=== PATIENT | female | born 1980 | race Caucasian/White ===

== ENCOUNTER 2019-10-27 09:40 | Outpatient (RCR) | payer OTHER, SELFPAY ==
[2019-10-27] MEDS: RHO(D) IMMUNE GLOBULIN 300 MCG SYRINGE IM (17:33)
== END 2020-01-25 23:59 | disposition home or self-care (01) ==
LOC: ANHLAB 09:40
PROVIDERS: Visit Provider Student in an Organized Health Care Education/Training Program
DX: Z29.13 Encounter for prophylactic Rho(D) immune globulin (principal); O36.0990 Maternal care for other rhesus isoimmunization, unspecified trimester, not applicable or unspecified; Z3A.00 Weeks of gestation of pregnancy not specified
CPT/HCPCS: 36415; 86900; 86901; 90384; 96372; J2790

== ENCOUNTER 2020-01-17 03:17 | Inpatient (IN) | payer OTHER, SELFPAY ==
[2020-01-17] VITALS (44 sets, daily range): BP systolic 83–179; BP diastolic 31–159; PULSE 61–161; RESP 16–18; TEMP 36.8–38.2; O2SAT 97–100; BMI 28.3
--- NOTE | 2020-01-17 03:33 | LDADM ---
This patient, Rocio Gomez, was admitted to Labor/Delivery/Recovery 105 on 01/17/20 at 03:17. Plans for labor, pain management and were discussed with patient. Patient/family oriented to hospital policies and general routines including ID bracelet, bed and alarms, visiting hours, pain management, procedures, bathroom and other care routines, personal items, smoking policy, room service/diet and guest tray routines, security routines, and visiting hours. Patient/Family are encouraged to report perceived risks to care and to ask questions if they do not understand what they are told or what they should do. See OBIX for further documentation.
[2020-01-17] MEDS: LACTATED RINGERS 1,000 ML 125 ML IV CONT (03:42)
[2020-01-17] MEDS: AMPICILLIN 2 GM/NS 100 ML 2 GM/100 ML BAG IVPB (03:42)
[2020-01-17 03:43] LABS: Basophils Absolute Auto 0.1 K/mm3 (0.0-0.1); Basophils Percent Auto 0.5 % (0.2-1.2); Eosinophils Absolute Auto 0.2 K/mm3 (0-0.3); Eosinophils Percent Auto 1.1 % (0-4.4); Hematocrit 39.1 % (37.0-47.0); Hemoglobin 13.4 g/dL (12.0-15.0); Immature Granulocyte Percent A 0.6 % (0-0.5); Lymphocytes Absolute Auto 2.87 K/mm3 (0.9-3.2); Lymphocytes Percent Auto 17.7 % (18.3-44.2); Mean Corpuscular HGB Conc 34.3 g/dl (32-36); Mean Corpuscular Hemoglobin 30.9 pg (26-34); Mean Corpuscular Volume 90.3 fl (80-100); Mean Platelet Volume 11.9 fl (7.4-10.4); Monocytes Absolute Auto 1.1 K/mm3 (0.1-0.6); Monocytes Percent Auto 6.5 % (2.6-8.5); Neutrophils Absolute Auto 11.9 K/mm3 (1.3-6.7); Neutrophils Percent Auto 73.6 % (45.5-73.1); Platelet Count Result 132 k/mm3 (150-375); Red Blood Count 4.33 M/mm3 (4.2-5.4); Red Cell Distribution Width 12.6 % (11.5-14.5); White Blood Count 16.2 K/mm3 (4.5-10.0)
--- NOTE | 2020-01-17 03:55 | WPDHPUPDATE1 ---
History and Physical Update Update Date/Time: 01/17/20 03:55 40 yo at 40w1d who presents in labor. She reports regular ctx. She denies vaginal bleeding or LOF. Her has been uncomplicated. History and Physical has been reviewed, including an updated exam of the patient. There are NO changes in the patient's condition. Risks, benefits, and alternatives have been discussed and questions answered. Patient agrees to proceed with procedure. A/P: 40 yo at 40w1d who presents in labor admit to L&D routine admission orders regular ctx FHT cat 1 GBS +, will start PCN Rh-, will get rhogam PP expecant management
--- NOTE | 2020-01-17 04:11 | WPDANESEPPF ---
Anes - Initial Pre Proc Eval Procedure: labor epidural Date/Time: 01/17/20 04:11 Surgeon: Rashad Galaviz MD Pre Op Diagnosis: labor Patient Data Age: 40 Gender: F Height: 1.7 m Weight: 82 kg Last Vital Signs Temp 36.8 C 01/17/20 03:22 Pulse 123 H 01/17/20 04:11 BP 177/159 H 01/17/20 04:11 Pulse Ox 100 01/17/20 04:10 Allergies Allergy/AdvReac Type Severity Reaction Status Date / Time No Known Allergies Allergy Verified 12/16/19 13:43 Home Medications Medication Instructions Recorded Confirmed Type PNV cmb#95-ferrous fumarate-FA 1 tablet PO DAILY 12/16/19 12/16/19 History [] Laboratory Tests 01/17/20 01/17/20 03:35 03:35 WBC 16.2 K/mm3 H K/mm3 (4.5-10.0) RBC 4.33 M/mm3 M/mm3 (4.2-5.4) Hgb 13.4 g/dL g/dL (12.0-15.0) Hct 39.1 % % (37.0-47.0) MCV 90.3 fl fl (80-100) MCH 30.9 pg pg (26-34) MCHC 34.3 g/dl g/dl (32-36) RDW 12.6 % % (11.5-14.5) Plt Count 132 k/mm3 L k/mm3 (150-375) MPV 11.9 fl H fl (7.4-10.4) Immature Gran % (Auto) 0.6 % H % (0-0.5) Neut % (Auto) 73.6 % H % (45.5-73.1) Lymph % (Auto) 17.7 % L % (18.3-44.2) Gem % (Auto) 6.5 % % (2.6-8.5) Eos % (Auto) 1.1 % % (0-4.4) Baso % (Auto) 0.5 % % (0.2-1.2) Lymph # (Auto) 2.87 K/mm3 K/mm3 (0.9-3.2) Gem # (Auto) 1.1 K/mm3 H K/mm3 (0.1-0.6) Eos # (Auto) 0.2 K/mm3 K/mm3 (0-0.3) Baso # (Auto) 0.1 K/mm3 K/mm3 (0.0-0.1) Abs Immat Gran (auto) 0.10 K/mm3 H K/mm3 (0.00-0.031) Absolute Neuts (auto) 11.9 K/mm3 H K/mm3 (1.3-6.7) Absolute Nucleated RBC 0.0 K/mm3 K/mm3 (0.0-0.012) Nucleated RBC % 0.0 % % (0.0-0.2) % Immature Plt Fraction 9.0 % % (0.9-11.2) RPR Pending Patient hx anesthesia problems: none Family hx anesthesia problems: none [facility] Family History Family History Grandparent Diabetes mellitus Cerebrovascular accident Father Diabetes mellitus Sibling Diabetes mellitus Mother Cerebrovascular accident Social History Social History Smoking status: Never smoker Substance use: never Spiritual care concerns: No Anes - Eval Final PreProcedure Day of Procedure 01/17/20 04:11 Patient weight: normal Heart: regular rate and rhythm Lungs: clear to auscultation and normal air movement Airway: Mallampati scale class II Neurological: alert and oriented ASA classification: II Anesthetic plan: proceed Anesthesia type and monitoring: regional epidural and standard monitoring Informed Consent: The patient's anesthetic plan and its attendant risks and benefits were discussed with the patient/family/POA. Questions were solicited and answers provided to the satisfaction of the patient/family/POA.
--- NOTE | 2020-01-17 04:59 | PM.OBPRVD ---
OB - Delivery Note Procedure Procedure: Patient pushed for a spontaneous vaginal delivery. The fetus was delivered atraumatically and placed on the maternal abdomen. The cord was clamped and cut after 1 minute of life. The cord was double clamped and cut and a segment of cord was collected for cord gases. Cord blood was collected for blood type and Coomb's testing. The placenta delivered spontaneously and was noted to be intact. The perineum was inspected and there was a 1st degree perineal laceration. The laceration was repaired with 3-0 vicryl in the usual fashion. The uterus was firm and good hemostasis was noted. The patient and fetus were stable in the delivery room. Intrapartal events: None Induction method: none Delivery augmentation: rupture of membranes Delivery monitor: external FHT Route of delivery: Episiotomy description: None Laceration description: Perineal - 1st Degree Delivery repair: vicryl Specimen: No Estimated blood loss (mL): 250 Anesthesia type: Epidural Disposition: floor () Complications: No immediate complications Baby Date of : 01/17/20 Time of : 04:45 Weeks of gestation at delivery: 40 gender: Male Weight (pounds): 9 Weight (ounces): 1 presentation: vertex position: Right Occiput Anterior Placenta delivery description: Spontaneous cord vessel description: 3 Vessels score one minute: 8 score five minutes: 9
[2020-01-17] MEDS: OXYTOCIN 30 UNITS/NS 500 ML 30 UNITS/500 ML BAG 125 UNITS IV CONT (06:30)
[2020-01-17] MEDS: IBUPROFEN 600 MG TABLET PO ×2 (06:38→20:08)
--- NOTE | 2020-01-17 07:39 | OBPPTRN ---
Patient transferred to post room #276 via W/C @ 0737. Support person present. Oriented to unit, room, information board, rooming in, admission packet and security measures. Patient verbalizes understanding.
--- NOTE | 2020-01-17 08:00 | PC.NURSE ---
Called Dr. Galaviz with pt status. Temp 100.7. Call if no improvement from meds, or temp increased again.
[2020-01-17 09:47] LABS: Rapid Plasma Reagin Non-Reactive (NonReactive)
[2020-01-18 05:20] LABS: Hematocrit 33.3 % (37.0-47.0); Hemoglobin 10.9 g/dL (12.0-15.0)
--- NOTE | 2020-01-18 07:13 | PM.OBDSVD ---
OB - DS: Summary OB Procedures : None OB Procedures Intrapartum: Spontaneous Vag Delivery OB Procedures: : None Status at Discharge Functional status at discharge: independent ambulation Overall status at discharge: patient is back to baseline Time Spent with Patient Time attestation: Total time spent providing and/or coordinating discharge services: Time spent: Less than 30 minutes Exam Const: General: comfortable and no acute distress Resp: Effort & Inspection: normal respiratory effort Auscultation: clear to auscultation bilaterally Cardio: Rate: regular rate GI: GI Palp: Yes Soft to palpation Auscultation: normal bowel sounds Other: Fundus firm below umbilicus Psych: Appearance: grossly normal Mental Status: mental status grossly normal Affect: normal affect DS: Data Data Completed and Pending Pending studies at discharge: Pending at discharge 01/17/20 04:55 Surgical [PTH] Routine Labs on day of discharge: Labs from last 24 hours 01/18/20 01/18/20 01/17/20 05:09 05:09 03:35 Hgb 10.9 L Hct 33.3 L RPR Non-reactive Blood Type A Negative Antibody Screen Negative Screen Pending Baby's Blood Type Pending Baby's BRET Pending Doses of RhIg Required Pending Discharge Plan Discharge Consulting providers: Nettie Gómez Discharging Clinician: Rashad Galaviz Patient Disposition: Home, Self-Care Activity: as tolerated and pelvic rest Diet: regular Discharge Instructions: call or return for temperature >100.4, bleeding >2 pads/hr for 2 hrs, pain not controlled with medications, signs/symptoms of mastitis Patient Instructions: Antibiotic Form Stand Alone Forms: General Discharge Information Follow-up/Referrals: Rashad Galaviz MD [Physician] - Discharge Medications: New Dermoplast (with menthol) 20-0.5 % Aerosol 1 spray topical PRN PRN (Reason: Perineal Discomfort) Qty: 1 RF: 0 acetaminophen [Mapap (acetaminophen)] 325 mg Tablet 650 mg PO Q6H PRN (Reason: Mild Pain (1-3) Or Headache) Qty: 30 RF: 0 ibuprofen 600 mg Tablet 600 mg PO Q6H PRN (Reason: Cramping) Qty: 30 RF: 0 [id number]-C-[id number] Cream 1 applic topical PRN PRN (Reason: Sore Nipples) Qty: 1 RF: 0 Continued PNV cmb#95-ferrous fumarate-FA [] 28 mg iron- 800 mcg Tablet 1 tablet PO DAILY RF: 0 Date of admission: 01/17/20 03:17 Primary Care Provider: PHYSICIAN,[employer]ICATOR Admitting Provider: Rashad Galaviz Attending physician on admission: Rashad Galaviz
[2020-01-18 07:30] VITALS: BP 117/75; PULSE 63; RESP 16; TEMP 37.2; O2SAT 100
--- NOTE | 2020-01-18 08:18 | WPDANLDPN2 ---
Anes-Prog Note L&D Date/Time: 01/18/20 08:18 Comfortable throughout: labor and delivery Neuraxial method: epidural Epidural/Spinal procedure site: clean & non-tender Neuro status: Neuro function grossly intact. Cardiovascular status: normal Respiratory status: normal Airway patency: baseline Mental status: baseline Post-Op hydration status: normal Vital Signs: Last Vital Signs Temp 37.3 C 01/17/20 20:00 Pulse 64 01/17/20 20:00 Resp 18 01/17/20 20:00 BP 127/71 01/17/20 20:00 Pulse Ox 99 01/17/20 20:00 Post-procedural complaints: none Patient feedback: Patient satisfied with anesthetic care.
--- NOTE | 2020-01-18 10:00 | PC.NURSE ---
Pt introductions made and plan of care discussed per post , pain management, breast feeding, daily care activities. PT verbalized understanding of such care.
[2020-01-18 10:33] VITALS: PULSE 63; RESP 16; O2SAT 100
[2020-01-18] MEDS: MULTIVIT/MIN/PREN/FOL AC/IRON TABLET 1 TAB PO (10:33)
[2020-01-18] MEDS: DOCUSATE SODIUM 100 MG CAPSULE PO ×2 (10:33→17:28)
[2020-01-18] MEDS: IBUPROFEN 600 MG TABLET PO ×2 (10:34→17:27)
[2020-01-18] MEDS: TETANUS,DIPHTHERIA,AC PERTUSSIS ADULT (0.5 ML) BOOSTRIX IM (10:34)
[2020-01-18] MEDS: RHO(D) IMMUNE GLOBULIN 300 MCG SYRINGE IM (15:15)
[2020-01-18] MEDS: LANOLIN (LANSINOH) 7.5 GM CREAM 1 APPLIC TOPICAL (15:17)
[2020-01-18 20:30] VITALS: BP 125/82; PULSE 63; RESP 18; TEMP 36.3; O2SAT 99
--- NOTE | 2020-01-19 07:00 | PC.NURSE ---
PT introductions made and plan of care discussed per post , pain management, breast feeding, daily care activities and pending discharge to home. PT verbalized understanding of such care.
[2020-01-19 07:40] VITALS: BP 124/74; PULSE 62; RESP 16; TEMP 37.3; O2SAT 97
[2020-01-19 10:00] VITALS: PULSE 62; RESP 16; O2SAT 97
[2020-01-19] MEDS: MULTIVIT/MIN/PREN/FOL AC/IRON TABLET 1 TAB PO (10:58)
[2020-01-19] MEDS: DOCUSATE SODIUM 100 MG CAPSULE PO (10:58)
--- NOTE | 2020-01-19 12:00 | PC.NURSE ---
Patient viewed the discharge video Mother & Baby Care, The First Two Weeks . Patient was given the opportunity and encouraged to ask questions. Patient verbalized understanding of information shared and has been given the mother/baby guide for home reference.
--- NOTE | 2020-01-19 13:45 | PC.NURSE ---
pt received discharge instructions per protocol and verbalized understanding of such care
--- NOTE | 2020-01-19 13:55 | PC.NURSE ---
Mother is able to independently latch with appropriate positioning/alignment. She denies any nipple discomfort, is feeding as required and waking infant to feed if needed. Infant has had at least 8 effective feedings in the past 24 hours, and is currently meeting outcomes for weight, output, jaundice and feeding frequencies. Mother is concerned infant is cluster feeding and he is not getting enough. Assured mother infant is WNL on all signs of adequate intake. Mother states she may supplement after breastfeedings to allow to sleepy longer between feedings. Reviewed milk should transition in within a few days and should be more satisfied between feedings. Mother states she feels confident to continue effective at home. Reviewed transition to breast milk, signs of adequate intake, and engorgement/relief. Instructed to call ICP if intake/output less than required. Reviewed regular medications mother is taking. Information provided per Noelle. Reviewed community resources on the [facility] website and in the Mom/Baby guide. Information on outpatient services provided. Mother has no further questions at this time.
--- NOTE | 2020-01-19 14:30 | PC.NURSE ---
PT discharged to home ambulatory accompanied by spouse and to waiting car. Follow up appts confirmed
[2020-01-20 07:49] VITALS: BP 131/87; PULSE 71; RESP 16; TEMP 37.1; O2SAT 98
== END 2020-01-19 14:30 | disposition home or self-care (01) | DRG 806 ==
LOC: ANHLDR 03:21 → ANHOB2 07:53
PROVIDERS: Admitting Provider Student in an Organized Health Care Education/Training Program; Visit Provider Student in an Organized Health Care Education/Training Program
DX: O99.824 Streptococcus B carrier state complicating childbirth (principal); O36.0930 Maternal care for other rhesus isoimmunization, third trimester, not applicable or unspecified; Z37.0 Single live birth; Z3A.40 40 weeks gestation of pregnancy; O70.0 First degree perineal laceration during delivery; O99.62 Diseases of the digestive system complicating childbirth; K21.9 Gastro-esophageal reflux disease without esophagitis
CPT/HCPCS: 36415; 85014; 85018; 85025; 85055; 85461; 86592; 86850; 86900; 86901; 88307; 90384; 90715; A9270; J0290; J2590; J2790; J2795; J7120

== ENCOUNTER → 2023-03-06 13:57 | Outpatient (CLI) | payer OTHER, SELFPAY ==
--- NOTE | ~2023-03-06 | MM_ITS ---
EXAMINATION: MM screening yaya BI w robb HISTORY: Baseline screening mammogram TECHNIQUE: Craniocaudal and mediolateral oblique 3-D tomosynthesis images were obtained and synthetic 2-D images were generated. CAD analysis was submitted and interpreted. COMPARISON: None, baseline BREAST PARENCHYMAL COMPOSITION: The breasts are heterogeneously dense, which may obscure small masses . FINDINGS: No suspicious mass, calcification, or architectural distortion are identified in either blayne ast to suggest malignancy. IMPRESSION: 1. No mammographic evidence of malignancy. 2. Recommend routine screening mammography in one year. BI-RADS Category 1: Negative Reviewed, dictated and finalized at location A.
== END ==
PROVIDERS: PCP Student in an Organized Health Care Education/Training Program; Visit Provider Student in an Organized Health Care Education/Training Program
DX: Z12.31 Encounter for screening mammogram for malignant neoplasm of breast (principal)
CPT/HCPCS: 77063; 77067

== ENCOUNTER 2024-06-10 11:37 | Outpatient (CLI) | payer OTHER, SELFPAY ==
--- NOTE | ~2024-06-10 | MM_ITS ---
EXAMINATION: MM screening yaya BI w robb HISTORY: Screening mammogram TECHNIQUE: Craniocaudal and mediolateral oblique 3-D tomosynthesis images were obtained and synthetic 2-D images were generated. CAD analysis was submitted and interpreted. COMPARISON: 03/06/2023 BREAST PARENCHYMAL COMPOSITION:Dense: The breasts are heterogeneously dense, which may obscure small masses. FINDINGS: No suspicious mass, calcification, or architectural distortion are identified in either blayne ast to suggest malignancy. There has been no suspicious interval change. IMPRESSION: No mammographic evidence of malignancy. Recommend routine screening mammography in one year. BI-RADS Category 1: Negative Reviewed, dictated and finalized at location . [employer] DIRECTOR OF PHARMACY
== END 2024-06-10 11:38 | disposition home or self-care (01) ==
LOC: MICIMG 11:37
PROVIDERS: PCP Student in an Organized Health Care Education/Training Program; Visit Provider Student in an Organized Health Care Education/Training Program
DX: Z12.31 Encounter for screening mammogram for malignant neoplasm of breast (principal)
CPT/HCPCS: 77063; 77067

== ENCOUNTER 2025-02-18 19:12 | Emergency (ER) | payer OTHER, SELFPAY ==
--- NOTE | 2025-02-18 19:13 | ED.URI ---
HPI - URI/Sore Throat General Chief Complaint: Upper Respiratory Infection Stated Complaint: strep symptoms Time Seen by Provider: 02/18/25 19:13 Source: patient Mode of arrival: ambulatory Limitations: no limitations History of Present Illness HPI Narrative: Patient is a 45-year-old female who presents with sore throat for 2 days with low-grade fever, body aches and chills. Has been taking Tylenol and ibuprofen. Denies any other sick contacts. Has not had any nausea, vomiting or diarrhea. Related Data Allergies Allergy/AdvReac Type Severity Reaction Status Date / Time No Known Allergies Allergy Verified 02/18/25 19:14 Review of Systems Review of Systems: All systems reviewed & are unremarkable except as noted in HPI and below Constitutional: Constitutional: Reports body ache(s), Reports fever(s), Denies headache(s), Denies malaise and Denies weakness Eyes: Eyes: Denies loss of vision ENT: Denies otalgia, Denies headache(s), Denies nasal congestion, Denies sinus pain and Reports sore throat Cardiovascular: Cardiovascular: Denies chest pain, Denies irregular heart rhythm and Denies dyspnea Respiratory: Respiratory: Denies cough and Denies dyspnea Gastrointestinal: Gastrointestinal: Denies abdominal pain, Denies melena, Denies hematochezia, Denies diarrhea, Denies nausea and Denies vomiting Musculoskeletal: Musculoskeletal: Denies back pain, Reports myalgias and Denies arthralgias Integumentary/Breasts: Skin/Breast: Denies pruritus and Denies rash Neurologic: Denies headache(s), Denies loss of vision and Denies weakness Psychiatric: Psychiatric: Reports no additional psychiatric complaints [facility] Surgical History Surgical History History of ankle surgery Family History Family History Grandparent Diabetes mellitus Cerebrovascular accident Father Diabetes mellitus Sibling Diabetes mellitus Mother Cerebrovascular accident Social History Social History Smoking status: Never smoker Alcohol intake: current Alcohol use details: social Substance use: never Do You Feel Safe in your Home?: Yes Lack of Transportation: No Lack of Food: Never True Current Housing: I Have Housing Concerned About Future Housing: No Difficulty Paying Gas/Electric Bills: No Difficulty Paying for Meds: No Currently Unemployed: No Education: Bachelor's Degree Difficulty w/ Childcare or Family Care: No Living arrangements: with family Occupation/Education: occupation Gender identity (if verbalized by the patient): Female Sexual Orientation (if Verbalized by the Patient): Straight or Heterosexual Spiritual care concerns: No Comments At time of signature, agree with nursing past medical, surgical, social and family history. There is no relevant family history pertinent to the presenting complaint. Exam Const: General: cooperative, healthy appearing, comfortable, no acute distress and well nourished Nutritional Appearance: well nourished Orientation/consciousness: patient oriented x3 Limitations: no limitations HENMT: Head: normal to inspection, normocephalic and atraumatic Ears: hearing grossly normal bilaterally, external ears normal, TM's normal bilaterally and EAC's normal Face/Nose/Sinus: Normal external nose present, Normal nares present, Normal nasal mucous membranes and turbinates present, Normal septum present, normal facial exam, sinuses nontender and face symmetric Face and sinus: normal facial exam, sinuses nontender and face symmetric Mouth: Yes Normal oral and palatal mucosa present, Yes lip normal and Yes moist mucous membranes Teeth and gingiva: dentition normal Throat: uvula midline, abnormal tonsil bilateral erythema, exudates and hypertrophy 2+ and posterior oropharynx abnormal erythema Eyes: General: appearance normal, both eyes and all related structures Alignment and Position: alignment normal and position normal Periorbital: periorbital findings normal Eyelids: eyelids normal Pupils: Equal, round and reactive pupils present Neck: Neck: normal visual inspection, full ROM, no lymphadenopathy and supple Chest: Chest palpation & inspection: normal inspection of the chest and normal palpation of entire chest wall Resp: Effort & Inspection: normal respiratory effort and able to speak in complete sentences Auscultation: clear to auscultation bilaterally, no crackles, no rales, no rhonchi and no wheezes Cardio: Rate: regular rate Rhythm: regular rhythm Heart sounds: S1 normal heart sound present and S2 normal heart sound present GI: Inspection: normal to inspection Skin: General skin exam: normal color and no rashes or lesions noted Neuro: General: patient oriented x3 and moves all extremities Cranial nerves: Yes Equal, round and reactive pupils present Speech: normal speech Gait exam (Neuro): Normal gait present Extrem: General: normal to inspection, full ROM and no edema Psych: Appearance: grossly normal and well kempt Mental Status: mental status grossly normal Speech and movement: Normal speech and movement present Affect: normal affect Attitude: cooperative Thought process: Normal thought process present Course Course Emergency Course: Patient is aware of diagnosis, understands and agrees to treatment plan. Anticipatory guidance given. Patient agrees to follow-up as directed and is aware of reasons to seek care at the emergency department. Portions of this record may have been created with voice recognition software Level of Care: Express Care Visit Vital Signs Vital signs: Vital Signs Temperature 37.4 C 02/18/25 19:23 Pulse Rate 68 02/18/25 19:23 Respiratory Rate 18 02/18/25 19:23 Blood Pressure 117/77 02/18/25 19:23 Pulse Oximetry 100 02/18/25 19:23 Oxygen Delivery Room Air 02/18/25 19:23 Temperature 37.4 C 02/18/25 19:23 Pulse Rate 68 02/18/25 19:23 Respiratory Rate 18 02/18/25 19:23 Blood Pressure 117/77 02/18/25 19:23 Pulse Oximetry 100 02/18/25 19:23 Oxygen Delivery Room Air 02/18/25 19:23 Reviewed MDM - URI/Sore Throat MDM Narrative Medical decision making narrative: Patient positive for strep, will treat with antibiotics. Pt well hydrated appearing, in no respiratory distress, hemodynamically stable. Recommend supportive care. The patient is stable at time of discharge the clinical impression was discussed and the patient was given the opportunity to ask questions, which were addressed as completely as possible given the information available at present. Anticipatory guidance and return to care precautions were discussed and the importance of primary care follow-up was stressed and encouraged. The patient voiced understanding of the plan, indications to return, and the need for follow-up. Patient is appropriate for outpatient treatment and follow-up. Differential diagnosis considered: Lan virus, strep pharyngitis, allergic rhinitis, upper respiratory tract infection, sinusitis, rhinosinusitis, nasopharyngitis. viral pharyngitis, otitis media, otitis externa, otitis effusion, foreign body, cerumen impaction, viral syndrome, and influenza.? Medical Records Attestation: I reviewed the patient's medical records. Lab Data Attestation: I reviewed the patient's lab results. Labs: Lab Results 02/18/25 Range/Units 19:25 POC Grp A Strep Screen Positive (Negative) Discharge Plan Discharge Clinical Impression: Strep throat Patient Disposition: Home Condition: Stable Instructions: Strep Throat (ED) Additional Instructions: Your rapid strep swab was positive today at [facility]. After 24 hours on antibiotics throw tooth brush away and start using a new one. Wash your sheets and cup/water bottle that is used daily. Do not share drinks. Take Motrin alternating with Tylenol for pain and fever alternating every 3 hours. 8 AM: Tylenol 11 AM: Ibuprofen 2 PM: Tylenol 5 PM: Ibuprofen 8 PM: Tylenol 11 PM: Ibuprofen 2 AM: Tylenol 5 AM: Ibuprofen Increase fluids, avoid caffeine. Other symptomatic treatments include: -Antihistamine medication such as Benadryl at night and Zyrtec/Claritin/My during the day can help improve symptoms. -Use Flonase twice a day for 5 days then daily to help reduce the inflammation and dry up your sinuses. -You can also use Sudafed or Mucinex. Be sure to drink plenty of water with these medications at least 8 ounces with every dose and it is important to drink 8 to 10 glasses of water per day. Water is a natural decongestant -Eat and drink things that are easy to swallow, like tea or soup, or popsicles. -Oral rinses such as: Salt water gargles and/or may use topical anesthetic (eg. Chloraseptic spray) or lozenges to relieve dryness or throat pain). -Frequent hand washing or hand experimental worker is one of the best ways to prevent spread of infection. -Using a vaporizer or humidifier at night will also help thin secretions and help with coughing up phlegm. -Follow up with primary care provider in 3-5 days if condition is not improving - For new or worsening symptoms go directly to the nearest ER Patient Language: Korean Prescriptions: New amoxicillin 500 mg capsule 500 mg PO BID 10 Days Qty: 20 0RF Follow-up/Referrals: Nate,ALVIN Curtis [Primary Care Provider] - 3 Days Time of Disposition: 19:27
--- OUTSIDE RECORDS SUMMARY | 2025-02-18 19:14 | XMS_ITS | Clinical Summary ---
Author Organization [facility] Address [facility] [place] [address] Care Team Providers Care Office Rep Name Role Phone Samina Sullivan NP Primary Care Provider [phone] Allergies Active Allergy Reactions Criticality Noted Date Comments Amoxicillin Rash Low 06/16/2022 As a baby Medications XIIDRA 5 % ophthalmic solution Place 1 drop into both eyes 2 (two) times daily. 3 Active multi vitamin/minerals (THERA-M ENHANCED) tablet Take 1 tablet by mouth daily. Active albuterol sulfate HFA 108 (90 Base) MCG/ACT inhalerIndication s:Exercise induced bronchospasm (HHS/HCC) Inhale 2 puffs into the lungs every 4 (four) hours as needed for Wheezing or Shortness of breath. 18 g 3 4 Active Active Problems No known active problems Resolved Problems Problem Noted Date Diagnosed Date Resolved Date No known health problems 08/25/202212/2022 Upper respiratory tract infe ction, unspecified type 06/16/2022 08/25/2022 Acute cough 06/16/2022 08/25/2022 Immunizations Immunization Administration Dates Next Due Tdap (Generic) 01/18/2020 Family History Medical History Relation Comments Diabetes Brother Diabetes Father Relation Status Comments Brother Father Social History Tobacco Use Types Packs/Day Years Used Date Smoking Tobacco: Former Cigarettes Passive Smoke Exposure: Past Smokeless Tobacco: Never Tobacco Cessation:Counseling Given: Not Answered Comments:na Alcohol Use Standard Drinks/Week Comments Yes 0 (1 standard drink = 0.6 oz pur e alcohol) socially PHQ-2 Answer Date Recorded PHQ-2 Score - If the patient scores above 3, please move on to questions 3-9 0 06/16/2022 Comments No Sex and Gender Information Value Date Recorded Sex Assigned at Female 12/09/2022 8:03 AM CDT Legal Sex Female 9:06 AM GENERAL PARTNER Gender Identity Female 12/09/2022 8:03 AM CDT Sexual Orientation Straight 12/09/2022 8: 03 AM CDT Last Filed Vital Signs Vital Sign Reading Time Taken Comments Blood Pressure 110/70 09/23/2023 12:50 PM GENERAL PARTNER Pulse 62 09/23/2023 12:50 PM GENERAL PARTNER Temperature 37.1 C (98.7 F) 09/23/2023 12:50 PM GENERAL PARTNER Respiratory Rate 14 09/23/2023 12:50 PM GENERAL PARTNER Oxygen Saturation 100% 09/23/2023 12:50 PM GENERAL PARTNER Inhaled Oxygen Concentration - - Weight 64.9 kg (143 lb) 09/23/2023 12:50 PM GENERAL PARTNER Height 171.5 cm (5' 7.5) 09/23/2023 12:50 PM CS T Body Mass Index 22.07 09/23/2023 12:50 PM GENERAL PARTNER Plan of Treatment Health Maintenance Due Date Last Done Comments Cervical Cancer Screening Pa p Smear (Age 30 to 64) Every 3 Years 1982 Hepatitis B Vaccines (1 of 3 - 19+ 3-dose series) 2001 HPV Vaccines (1 - 3-dose SCD M series) 2009 COVID-19 Vaccine (2023-2 5 season) 2024 07/10/2021, 10/29/2020, 10/08/2020 PHQ-2 (Physician Venetie) 07/27/2024 Annual Physical 09/23/2024 09/23/2023, 08/25/2022 Mammogram Screening 03/06/2025 03/06/2023 Cervical Cancer Screening Pa p with HPV Testing (Age 30 to 64) Every 5 Years 07/03/2027 07/03/2022 Cervical Cancer Screening wi th HPV 07/03/2027 DTaP, Tdap and Td Vaccines ( 2 - Td or Tdap) 01/17/2030 01/18/2020 Hepatitis C Completed 09/02/2022 Meningococcal B Vaccine Aged Out No l onger eligible based on patient's age to complete this topic Meningococcal Vaccine Aged Out No cheyenne vinayak eligible based on patient's age to complete this topic Pneumococcal Vaccine: Pediatrics (0 to 5 Years) and At-Risk Patients (6 to 49 Years) Aged Out No longer eligible b ased on patient's age to complete this topic RSV Immunizations Under 20 Months Aged Out No longer eligible b ased on patient's age to complete this topic Procedures Procedure Name Priority Date/Time Associated Diagnosis Comments MAMMOGRAM GENERIC (SCAN ORDER) 03/06/2023 HEPATITIS C ANTIBODY W/RFX TO HCV RNA Routine 09/02/2022 11:38 AM GENERAL PARTNER Need for hepatitis C screening test OUTSIDE CYTOPATH CERV/VAG INTERPRET (PAP) 07/03/2022 from Last 3 Months or Most Recently Relevant to Health Maintenance Results * MAMMOGRAM GENERIC (03/06/2023) Anatomical Region Laterality Modality Other 03/06/2023 [facility] Scanned SCANNING Final Resu lt * HEPATITIS C ANTIBODY W/RFX TO HCV RNA ([facility] ONLY) (09/02/2022 11:38 AM GENERAL PARTNER) HEPATITIS C AB NON-REACT HILARY NON-REACT HILARY [facility] SIGNAL TO CUTOFF 0.04 <1.00 [facility] Comment: HCV antibody was non-reactive. There is no laboratory evidence of HCV infection. In most cases, no further action is required. However, if recent HCV exposure is suspected, a test for HCV RNA (test code 94146) is suggested. For additional information please refer to http://education.[employer]/faq/MHZ32g6 (This link is being provided for informational/ educational purposes only.) 09/02/2022 11:3 8 AM GENERAL PARTNER 09/02/2022 11:39 AM GENERAL PARTNER Narrative [facility] - SHERYL ORDERS - 09/03/2022 2:39 AM GENERAL PARTNER FASTING:NO FASTING: NO Resulting Agency Comment Performing Organization Information: Site ID: [place] Name: [facility] Address: [address] [id number] Director: Dimitri Mendoza MD us Samina Sullivan NP LABORATORY Final Res ult [facility] - [facility] [address] [id number], [place] * PAP SMEAR WITH HPV (07/03/2022) 07/03/2022 [facility] Scanned SCANNING Final Resu lt from Last 3 Months or Most Recently Relevant to Health Maintenance Insurance eleni [facility] Care Teams Office Rep Relationship Specialty Start Date End Date Samina Sullivan NP [address] [place] [address] PCP - General NURSE PRACTITIONER 06/16/22
--- OUTSIDE RECORDS SUMMARY | 2025-02-18 19:14 | XMS_ITS | Clinical Summary ---
Author Organization [facility] Address [facility] [place] [address] Care Team Providers Care Foundry Helper Name Role Phone Pcp, [facility] Primary Care Provider Unavailable Source Comments [facility],non-owned Affiliates and Associated Physician Practices is amultiple site organization consisting of ambulatory clinics and hospital sitesin [place], [place], [place] and [place]. This disclosure is being madepursuant to the Care Everywhere program and may not contain all information available regarding this patient. Last updated 18.[facility] Allergies Active Allergy Reactions Criticality Noted Date Comments Penicillins Urticaria Medium 10/07/2011 Medications * Be aware that medications may not be up to date on this document. Alwaysverify current medications with the patient. norgestim-eth estrad triphasic ([id number] N) tablet Take 1 Tab by mouth 10/07/2016 Active Active Problems Problem Noted Date Diagnosed Date PUD (peptic ulcer disease) 12/05/2016 Immunizations Immunization Administration Dates Next Due TDAP (7yrs+) 12/10/2011 Family History Medical History Relation Name Comments Diabetes - Type 2 Father Relation Name Status Comments Father Alive Mother Alive Social History Tobacco Use Types Packs/Day Years Used Date Smoking Tobacco: Never Smokeless Tobacco: Never Comments No Sex and Gender Information Value Date Recorded Sex Assigned at Not on file Legal Sex 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 [employer] Gender Identity Not on file Sexual Orientation Not on file Last Filed Vital Signs Vital Sign Reading Time Taken Comments Blood Pressure 110/72 12/07/2017 3:33 PM CDT Pulse 74 12/07/2017 3:33 PM CDT Temperature 36.7 C (98 F) 12/07/2017 3:33 PM CDT Respiratory Rate - - Oxygen Saturation 98% 12/07/2017 3:33 PM CDT Inhaled Oxygen Concentration - - Weight 65.1 kg (143 lb 9.6 oz) 12/07/2017 3:33 P M CDT Height 170.2 cm (5' 7) 12/07/2017 3:33 PM CDT Body Mass Index 22.49 12/07/2017 3:33 PM CDT Plan of Treatment Health Maintenance Due Date Last Done Comments LIPID TESTING 1982 MAMMOGRAM 1982 HIV SCREENING 1997 HEPATITIS C SCREENING 01/04/2000 HEPATITIS B VACCINE (1 of 3 - 19+ 3-dose series) 2001 HPV VACCINE (1 - 3-dose SCDM series) 2009 PAP SMEAR 10/07/2019 10/06/2016 (Previously completed) DTAP/TDAP/TD VACCINES (2 - T d or Tdap) 12/09/2021 12/10/2011 COVID-19 VACCINE ( - 2023-2 5 season) 2024 DEPRESSION SCREENING 07/27/2024 INFLUENZA VACCINE (#1) 2025 ZOSTER VACCINE (1 of 2) 01/09/2032 HIB VACCINE Aged Out No longer eligi ble based on patient's age to complete this topic MENINGOCOCCAL (Group B) VACCINE SHARED DECISION-MAKING Aged Out No longer eligible based on patient's age to complete this topic MENINGOCOCCAL GROUPS A/C/Y/W VACCINE Aged Out No longer eligible b ased on patient's age to complete this topic PNEUMOCOCCAL VACCINE Aged Out No long er eligible based on patient's age to complete this topic Insurance [employer] Care Teams Foundry Helper Relationship Specialty Start Date End Date Pcp, [facility] [place][note 2] Im-Fm PCP - General 02/20/23
--- OUTSIDE RECORDS SUMMARY | 2025-02-18 19:14 | XMS_ITS | Encounter Summary ---
Author Organization [facility] Address [facility] [place] [address] Care Team Providers Care Vertical Lathe Operator Name Role Phone Samina Sullivan NP Primary Care Provider [phone] Encounter Details Date Type Department Care Team (Late st Contact Info) Description 02/23/2023 LUVHAN Message Enc [facility] Family Medicine - [place] [address] [place] [address] Samina Sullivan NP [address] [place], [place] [id number] [facility] Social History Tobacco Use Types Packs/Day Years Used Date Smoking Tobacco: Former Cigarettes Passive Smoke Exposure: Past Smokeless Tobacco: Never Comments:na Alcohol Use Standard Drinks/Week Comments Yes 0 (1 standard drink = 0.6 oz pur e alcohol) socially PHQ-2 Answer Date Recorded PHQ-2 Score - If the patient scores above 3, please move on to questions 3-9 0 06/16/2022 Comments No Sex and Gender Information Value Date Recorded Sex Assigned at Female 12/09/2022 8:03 AM CDT Legal Sex Female 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
[2025-02-18 19:23] VITALS: BP 117/77; PULSE 68; RESP 18; TEMP 37.4; O2SAT 100
[2025-02-18 19:27] LABS: EDSTREPNEGPOS1 Positive (Negative)
== END 2025-02-18 19:29 | disposition home or self-care (01) ==
PROVIDERS: Emergency Provider Nurse Practitioner Family; PCP Nurse Practitioner
DX: J02.0 Streptococcal pharyngitis (principal)
CPT/HCPCS: 87880; 99213; G0463

== ENCOUNTER 2025-06-16 11:28 | Outpatient (CLI) | payer OTHER, SELFPAY ==
--- NOTE | ~2025-06-16 | MM_ITS ---
EXAMINATION: MM screening yaya BI w robb HISTORY: Screening TECHNIQUE: Craniocaudal and mediolateral oblique 3-D tomosynthesis images were obtained and synthetic 2-D images were generated. CAD analysis was submitted and interpreted. COMPARISON: Comparison to multiple prior studies sequentially, with oldest reviewed study dated 03/06/2023. BREAST PARENCHYMAL COMPOSITION: Dense: The breasts are heterogeneously dense, which may obscure small masses FINDINGS: There is no evidence of suspicious mass, calcification, or architectural distortion to suggest malignancy in either breast. There has been no suspicious interval change. IMPRESSION: 1. No mammographic evidence of malignancy. 2. Recommend routine screening mammography in one year. BI-RADS Category 1: Negative Reviewed, dictated and finalized at location O. RACT MANAGER
== END 2025-06-16 11:29 | disposition home or self-care (01) ==
LOC: MICIMG 11:32
PROVIDERS: PCP Nurse Practitioner; Visit Provider Student in an Organized Health Care Education/Training Program
DX: Z12.31 Encounter for screening mammogram for malignant neoplasm of breast (principal)
CPT/HCPCS: 77063; 77067